=== PATIENT | female | born 1980 | race Caucasian/White ===

== ENCOUNTER 2024-12-16 07:46 | Emergency (ER) | payer OTHER ==
[~2024-12-16] VITALS: Ht 170.2 cm; Wt 64.0 kg
[2024-12-16] MEDS: ondansetron/PF 4mg/2ml inj IV ONE (08:08)
[2024-12-16] MEDS: morphine 4 MG/ML inj SYRINge IV ONE (08:09)
[2024-12-16] MEDS: normal saline 1000ML IV soln IVB ONE (08:10)
[2024-12-16 08:13] VITALS: TEMP 97.5
--- NOTE | 2024-12-16 08:14 | Physician Documentation ---
History of Present Illness Chief Complaint: Abdominal Pain Stated Complaint: ABDOMINAL PAIN Time Seen by MD: 07:51 HPI This is a very pleasant 44-year-old female who presents for evaluation of right lower quadrant abdominal pain that woke her from sleep around 3:00 a.m.. No obvious trigger provocation. Describes pain as sharp, radiating down to her leg, worse with the walking, worse with palpation, accompanied by severe nausea and two episodes of vomiting. This never happened in the past. No particular palliating factors. Did not attempt to treat it. She denies any fever, chills, chest pain, difficulty breathing, denies headache. She drinks regularly, but denies use of tobacco or illicit substances. Medication Reconciliation Allergies: Coded Allergies: azithromycin (Verified Allergy, Severe, anaphylaxis, 12/16/24) Review of Systems ROS 10 point review of systems was performed and unless noted above in HPI is negative for acute process/complaint. Physical Exam Vital Signs: Temperature: 97.5, Source: Temporal, Heart Rate: 80, Respiratory Rate: 16, BP: 149/69, Pulse Oximetry: 99, Weight: 64.000 Oxygen Flow Rate: 0 Physical Exam GENERAL: Awake, alert, oriented, GCS 15, no apparent distress, non-toxic appearing, answers questions, follows commands appropriately. examined in triage and placed in bed 1. HEENT: Atraumatic, normocephalic, pupils equal, extraocular muscles intact, sclerae anicteric, mucus membranes moist, oropharynx is clear, no stridor. NECK: supple, full active range of motion, trachea midline, no thyromegaly, no lymphadenopathy, no JVD. CARDIOVASCULAR: regular rate/rhythm, no murmurs/gallops/rubs, Pulses are 2+ in all extremities and symmetric. Capillary refill less than 2 seconds. PULMONARY: Nonlabored, good air movement ,no respiratory distress, speaking in full sentences, clear to auscultation bilaterally, no wheezing, no ronchi, no rales, no accessory muscle use. Negative Reyes's. GASTROINTESTINAL: Soft, right lower quadrant tenderness to palpation reproducing chief complaint, non-distended, normal active bowel sounds, no organomegaly, no pulsatile masses, no CVA tenderness. NEUROLOGIC: Lucid with normal mental status. Normal facial symmetry. Moves all extremities symmetrically and with purpose. No truncal ataxia. Speech is fluid without evidence of dysarthria or aphasia, no focal deficits appreciated. MUSCULOSKELETAL: There is full range of motion of all extremities. There is no joint pain or joint swelling or joint erythema. There is no muscle pain or tenderness or swelling. EXTREMITIES: warm, well-perfused, no cyanosis, no clubbing, no edema, no acute deformities. Skin: warm, dry, no rashes or lesions, no jaundice, no petechiae orpurpura. No ecchymosis. PSYCHIATRIC: Normal affect, normal insight, normal concentration. Focused exam: No guarding or rebound Progress Results/Orders Results/Orders Orders - ISAAK CARDONA DO Cbc/Diff (12/16/24 07:51) ESR (12/16/24 07:51) C-Reactive Protein (12/16/24 07:51) Urinalysis, Cult If Indicated (12/16/24 07:51) MG (12/16/24 07:51) Monitor (12/16/24 07:51) Saline Lock (12/16/24 07:51) Hcg Serum Ql (12/16/24 07:51) Ct Abdomen Pelvis (12/16/24 07:51) CMP (12/16/24 07:51) Completed Orders - ISAAK CARDONA DO Normal Saline 1000ml (0.9% Sodium Chlori (12/16/24 07:55) Morphine 4mg/Ml Inj. (Morphine Inj.) (12/16/24 07:55) Ondansetron Inj. (Zofran 4mg/2ml Vial) (12/16/24 07:55) Medications Received in ER Medications (Trade) Dose Ordered Sig/Diana Route PRN Reason Start Time Stop Time Status Last Admin Dose Admin (0.9% sodium chloride (NS) 1000ml IV soln) 1,000 ml ONCE ONCE IVB 12/16/24 07:55 12/16/24 07:56 DC 12/16/24 08:10 1,000 ML (morphine inj.) 4 mg ONCE ONCE IV 12/16/24 07:55 12/16/24 07:56 DC 12/16/24 08:09 4 MG (Zofran 4mg/2ml vial) 4 mg ONCE ONCE IV 12/16/24 07:55 12/16/24 07:56 DC 12/16/24 08:08 4 MG Vital Signs 12/16/24 12/16/24 07:50 08:09 Temp 97.5 Pulse 80 Resp 16 16 B/P (MAP) 149/69 Pulse Ox 99 O2 Flow Rate 0 Medical Decision Making Findings Facility Status: ED Holds, RME process The plan was discussed with the patient, who demonstrates clear understanding of the plan and is in agreement with the plan unless otherwise noted in the chart. All questions have been answered, all concerns were addressed unless otherwise documented. I was available throughout their ED stay for frequent reassessment and questions. Differential Diagnoses (considered and possible or likely): [Differential diagnosis considered includes acute appendicitis, acute cholecystitis, pancreatitis, gastritis, PUD, diverticulitis, mesenteric ischemia, abdominal aortic aneurysm, bowel obstruction, enteritis, colitis, fecal impaction, volvulus, IBS, inflammatory bowel disease, specific food intolerance, peritonitis, perforated viscous, malignancy, UTI, abscess, and abdominal pain NOS. Pelvic source of pain was also considered including endometritis, dysmenorrhea, ovarian cyst, ovarian torsion, PID, TOA, cervicitis, vaginitis, or uterine fibroid. History, physical exam, and workup exclude many of the more serious causes listed above. ] ??Differential Diagnoses (considered and unlikely, not requiring evaluation currently): [See above] MDM Data Please see [facility] for the following: Independent Historians and external Records Review. Historian: [Patient] Independent Historians: ?[Record review] Medication Management: [Reviewed medication list] Social History and determinants: [Reviewed] Please see the body of the note for the following: Any independent interpretations of ECG, imaging studies. All vitals signs/haemodynamics, ordered tests were independently reviewed and interpreted by myself. Nursing triage complaint and vitals reviewed, additional nursing notes were reviewed as available and I agree unless otherwise noted or documented in co ntradiction in the chart Vital Signs: Independently reviewed Labs: Independently interpreted Imaging: Independently interpreted Old Medical Records: Independently reviewed, see [facility] for relevant summary and information Pulse Oximetry: [100%] interpreted as [normal on room air] by me [[employer]: [Regular Rate, Regular rhythm, no ectopy, NSR] reviewed and interpreted by me] Additionally notably showing: [Hemodynamics reviewed. The patient is not febrile, not tachycardic, no evidence of hypotension respiratory distress. CBC normal. There is no evidence of leukocytosis. No anemia. Metabolic panel was essentially unremarkable. C-reactive protein his slightly elevated. Urine is negative for UTI. Patient is not . CT shows questionable colitis.] Tests considered but not ordered include: [Initially did not consider ultrasound, however given negative CT and persistent pain we will evaluate for potential torsion] ultrasound showed no torsion. Social Determinants of Health Impact: Patient was evaluated in [facility] [place] to healthcare due to below par ratio of patient to medical providers. [] Comorbid Conditions Impacting Present Evaluation and Care/Treatment: [None] Management Discussions with other Healthcare Providers: None] Treatment and Disposition Medication Management (Given or considered): [Pain management]. See EMR for details Consideration for Hospitalization/Escalation/Deescalation of Care: Admission for observation has been considered, [however the patient is able to tolerate p.o., their symptoms are controlled, they are able to rely on oral medications, and their chief complaint/diagnosis can be managed on outpatient basis.] ?ED Course:?[No clinical deterioration. No explanation for the pain. No actionable cause that would require admission] ?Shared decision making:? Patient is hemodynamically stable for discharge home with follow with their primary care provider. [ ] Specific and cautious return precautions provided and discussed with full understanding. Any incidental findings were also discussed and follow up recommendations given. [] All questions answered. Patient/family were able to verbalize back return precautions. Patient/family agree to plan. Copies of imaging and laboratory studies were provided. Code status:?FULL Please see the full Electronic Medical Record for full details of nursing documentation, medications list, other records of complete past medical history and conditions, vital signs, laboratory studies, and any radiologic study interpretations by radiologists. Portions of this note were completed using [employer] dictation software and as a result there may exist minor errors in spelling. I have reviewed elements of past family and social history and agree as included in note. Departure Disposition: 01 HOME / SELF CARE / HOMELESS Impression: Primary Impression: Right lower quadrant abdominal pain Additional Impression: Nausea and vomiting Condition: Improved Discharge Instructions: Abdominal Pain (Nonspecific) Referrals: NO PRIMARY CARE PROVIDER (PCP) Education Educated: Patient Educated regarding: diagnosis, treatment, prognosis, need for follow up Signature Scribe Signature: No scribe Attestation: This note accurately reflects clinical decisions, work performed by myself, Isaak Cardona, ISAAK WILSON DO Dec 16, 2024 08:14
[2024-12-16 08:24] LABS: LEUKOCYTE ESTERASE ,URINE NEGATIVE (Neg); NITRITES, URINE NEGATIVE (Neg); OCCULT BLOOD,URINE SMALL (Neg)
[2024-12-16 08:28] LABS: MUCUS STRANDS FEW /LPF (Neg); SQUAMOUS EPITHELIAL CELL,UR FEW /LPF (FEW); UA COLLECTION TYPE CLN CATCH MIDSTREAM
[2024-12-16 08:44] LABS: URINE HCG NEGATIVE (NEG)
[2024-12-16] MEDS ORDERED: iohexol 300mg/ml 100ml inj. ONE (08:46)
[2024-12-16 08:51] LABS: MEAN PLATELET VOLUME 8.3 FL (7.4-10.4); RED CELL DISTRIBUTION WIDTH 12.5 % (11.5-14.5)
[2024-12-16 09:00] LABS: CREATININE 0.75 MG/DL (0.40-0.90); TOTAL CARBON DIOXIDE 26.1 MMOL/L (24-32); eCRCL 95 ML/MIN; eGFR 85 ML/MIN
[2024-12-16] MEDS: ketorolac trometh 30MG/ML vial 30 MG/ML VIAL IV ONE (09:18)
--- NOTE | 2024-12-16 09:42 | RADIOLOGY REPORT ---
Exam: CT CT ABDOMEN PELVIS W/ IV CONTRAST History: Right lower quadrant abdominal pain Comparison Study: None Technique: Multidetector spiral CT of the abdomen was performed from lung bases to pubic symphysis. A xial imaging was performed with intravenous contrast following the uneventful administration of 100 m l Omnipaque 300. Coronal and sagittal multiplanar reformats were obtained from the axial data set by the technologist. Radiation Dose : 1. Abdomen/Pelvis: CTDIvol 21.9 mGy, DLP 1030.5 mGy*cm. Findings: Lung Bases: Lung bases are clear. Visualized portions of the heart and pericardium are unremarkable. Liver: The liver is normal in size. No focal lesions. Gallbladder and Biliary Tree: The gallbladder is unremarkable. No intrahepatic or extrahepatic bilia ry ductal dilatation. Spleen: Unremarkable Pancreas: The pancreas enhances normally and there are no focal lesions. The main pancreatic duct is not dilated Adrenal Glands: Unremarkable Kidneys: Kidneys enhance symmetrically. No calculi or hydronephrosis. GI tract: The stomach is grossly normal in appearance. No evidence of small bowel wall thickening or abnormal dilatation to suggest bowel obstruction. Mild diffuse wall thickening of the colon versus un derdistention. The appendix is visualized and is normal. Peritoneum/mesentery/retroperitoneum. No evidence of free intraperitoneal air. No ascites. No evidenc e of suspicious lymphadenopathy. Abdominal Wall: Unremarkable. Vasculature: Abdominal aorta and main branches are unremarkable. Normal vascular enhancement. Urinary Bladder: Grossly unremarkable for degree of distention. Pelvic Organs: Uterus and adnexal structures are unremarkable. Tampon in the vagina. Musculoskeletal: No aggressive focal bony lesions, acute fractures or dislocation. Left L4-L5 facet a rthropathy. IMPRESSION: 1. Underdistention versus wall thickening of the colon. 2. Colitis is not excluded.
--- NOTE | 2024-12-16 11:15 | RADIOLOGY REPORT ---
INDICATION: R adnexal pain, torsion TECHNIQUE: Multiple real-time grayscale transabdominal sonographic images along with color and duplex Doppler of the uterus and ovaries were obtained. COMPARISON: CT CT ABDOMEN PELVIS W/ IV CONTRAST on DOS: 12/16/24 FINDINGS: Uterus measures 9.1 x 5.0 cm Probable fibroid in the uterus measuring 2.5 cm Right ovary measures 2.9 left ovary measures 2.6 cm Small bilateral ovarian cysts measuring less than 1 cm No free fluid IMPRESSION: No torsion Endometrial stripe measures 2 mm Probable fibroid in the uterus measuring 2.5 cm.
[2024-12-16 12:19] VITALS: BP 121/66; PULSE 60; RESP 18; O2SAT 98
== END 2024-12-16 12:27 | disposition home or self-care (01) ==
LOC: ER 07:47
DX: R10.31 Right lower quadrant pain (principal); R11.2 Nausea with vomiting, unspecified; Z88.1 Allergy status to other antibiotic agents
CPT/HCPCS: 36415; 74177; 76830; 76856; 80053; 81001; 81025; 83735; 85025; 85651; 86140; 93976; 96361; 96374; 96375; 99285; J1885; J2270; J2405; J7030; Q9967